=== PATIENT | female | born 1960 | race Two or more races ===

== ENCOUNTER 2022-11-14 19:08 | Emergency (ER) | payer OTHER ==
[~2022-11-14] VITALS: Ht 157.5 cm; Wt 69.9 kg
[2022-11-14] MEDS ORDERED: ZESTRIL5 MG PO (19:50)
== END 2022-11-14 23:58 | disposition home or self-care (01) ==
LOC: ER 19:08
PROVIDERS: Emergency Medicine
DX: T61.01XA Ciguatera fish poisoning, accidental (unintentional), initial encounter (principal); X58.XXXA Exposure to other specified factors, initial encounter; Y92.89 Other specified places as the place of occurrence of the external cause; I10 Essential (primary) hypertension; Z85.3 Personal history of malignant neoplasm of breast; Z88.8 Allergy status to other drugs, medicaments and biological substances; Z20.822 Contact with and (suspected) exposure to COVID-19